=== PATIENT | female | born 1980 | race Caucasian/White ===

== ENCOUNTER → 2017-09-05 | Outpatient (REF) | payer OTHER | LOC: M LAB REF 18:46 | PROVIDERS: ATTEND Advanced Practice Midwife | DX: Z12.4 Encounter for screening for malignant neoplasm of cervix (principal) ==

== ENCOUNTER → 2020-12-18 | Outpatient (CLI) | payer SELFPAY | LOC: M LABSMTC 10:48 | PROVIDERS: ATTEND Pediatrics | DX: Z20.822 Contact with and (suspected) exposure to COVID-19 (principal) ==

== ENCOUNTER 2022-05-23 01:55 | Emergency (ER) | payer OTHER, SELFPAY ==
[~2022-05-23] VITALS: Ht 152.4 cm; Wt 48.2 kg
[2022-05-23 01:56] VITALS: BP 119/74
== END 2022-05-23 02:28 | disposition left against medical advice (07) ==
LOC: M ED 01:55
DX: Z53.29 Procedure and treatment not carried out because of patient's decision for other reasons (principal)

== ENCOUNTER → 2024-04-29 | Outpatient (CLI) | payer OTHER | LOC: M WHC 16:29 | PROVIDERS: ATTEND Advanced Practice Midwife | DX: Z12.31 Encounter for screening mammogram for malignant neoplasm of breast (principal) ==

== ENCOUNTER → 2024-05-21 | Outpatient (CLI) | payer OTHER | LOC: M WHC 12:29 | PROVIDERS: ATTEND Advanced Practice Midwife | DX: R92.8 Other abnormal and inconclusive findings on diagnostic imaging of breast (principal) ==

== ENCOUNTER → 2024-12-04 | Outpatient (CLI) | payer OTHER | LOC: M WHC 09:05 | PROVIDERS: ATTEND Advanced Practice Midwife | DX: R92.2 Inconclusive mammogram (principal) ==

== ENCOUNTER → 2025-10-28 | Outpatient (CLI) | payer OTHER | LOC: M WHC 10:33 | PROVIDERS: ATTEND Advanced Practice Midwife | DX: N60.12 Diffuse cystic mastopathy of left breast (principal) ==

== ENCOUNTER → 2025-10-28 | Outpatient (REF) | payer OTHER ==
[2025-10-30 17:03] LABS: HPV APTIMA Not Detected (Not Detected)
== END ==
LOC: M SFHCWAGY 13:39
PROVIDERS: ATTEND Advanced Practice Midwife
DX: Z12.4 Encounter for screening for malignant neoplasm of cervix (principal)